=== PATIENT | female | born 1985 | race Caucasian/White ===

== ENCOUNTER → 2017-04-15 | Outpatient (CLI) | payer BC ==
--- NOTE | 2017-04-15 14:31 | DIAGNOSTIC IMAGING REPORT ---
SI JOINTS 3 OR MORE VIEWS CLINICAL HISTORY: Persistent low back pain COMPARISON STUDY: No previous studies for comparison. FINDINGS: There is no evidence of SI joint fusion. There are no erosive or destructive changes. No fractures are visualized. IMPRESSION: No conventional radiographic evidence of sacroiliitis. Electronically signed by: Sonny Morel M.D. 04/15/2017 2:30 PM Dictated Date/Time: 04/15/2017 2:29 PM
--- NOTE | 2017-04-15 14:32 | DIAGNOSTIC IMAGING REPORT ---
C-SPINE ROUTINE 4 OR 5 VIEWS CLINICAL HISTORY: Persistent neck pain COMPARISON STUDY: No previous studies for comparison. FINDINGS: There is a reversal the normal cervical lordosis. No fractures or subluxations are visualized. No destructive lesions are evident. IMPRESSION: Reversal the normal cervical lordosis. Minor degenerative changes. No fractures, subluxations, or destructive lesions are visualized Electronically signed by: Sonny Morel M.D. 04/15/2017 2:31 PM Dictated Date/Time: 04/15/2017 2:30 PM
--- NOTE | 2017-04-15 14:32 | DIAGNOSTIC IMAGING REPORT ---
LUMBAR SPINE 5 VIEWS HISTORY: LUMBAR/NECK PAIN, PT TO LAB 1 COMPARISON: None. FINDINGS: There is no fracture. No subluxation. Disc spaces are preserved. Cholecystectomy. The sacrum appears intact. IMPRESSION: No fracture or subluxation within the lumbar spine. Electronically signed by: Rob Mejia M.D. 04/15/2017 2:30 PM Dictated Date/Time: 04/15/2017 2:29 PM
[2017-04-15 15:01] LABS: BASO % 0.4 %; BASO ABS # 0.04 K/uL (0-0.2); COMPLETE YES; HEMATOCRIT 45.2 % (37-47); IG% 0.3 %; LYMPH % 28.6 %; LYMPH ABS # 3.01 K/uL (1.2-3.4); MEAN CELL VOLUME 88.6 fL (80-100); MEAN CORPUSCULAR HEMOGLOBIN 30.8 pg (25-34); MEAN CORPUSCULAR HGB CONC 34.7 g/dl (32-36); MEAN PLATELET VOLUME 11.2 fL (7.4-10.4); MONO % 6.4 %; NEUT % 62.3 %; PLATELET COUNT 290 K/uL (130-400); WHITE BLOOD COUNT 10.53 K/uL (4.8-10.8)
[2017-04-15 15:45] LABS: RHEUMATOID FACTOR < 10.0 U/mL (0-15); THYROID STIMULATING HORMONE 0.298 uIu/ml (0.300-4.500)
[2017-04-15 18:29] LABS: LYME DISEASE AB IGG NEG (NEG); LYME DISEASE AB IGM NEG (NEG)
--- NOTE | 2017-04-19 10:05 | CODING QUERY MEDICAL NECESSITY ---
SUPPORTING DIAGNOSIS NEEDED A supporting diagnosis is required for the test/procedure performed on this patient in order for us to be reimbursed by the patient's insurance. Please provide a supporting diagnosis for the following test/procedure listed below next to the test name along with your signature. *If there is no additional diagnosis for this patient that would support the following test/procedure please document that below next to the test/procedure. Test(s)/Procedure(s) that require a supporting diagnosis: * VITAMIN D, 25-HYDROXY DIAGNOSIS: Provider Signature: Date: Thank you Paulina Wong [employer] Once completed, please kindly fax back to [phone] For questions please call [phone]
== END | disposition home or self-care (01) ==
LOC: C.RAD 13:20
PROVIDERS: ATTEND Nurse Practitioner Family
DX: M54.2 Cervicalgia (principal); M54.5 Low back pain; M25.50 Pain in unspecified joint; Z82.61 Family history of arthritis; Z86.39 Personal history of other endocrine, nutritional and metabolic disease

== ENCOUNTER → 2017-04-26 | Outpatient (CLI) | payer BC | END | disposition home or self-care (01) | LOC: C.LAB 14:17 | PROVIDERS: ATTEND Nurse Practitioner Family | DX: Z86.39 Personal history of other endocrine, nutritional and metabolic disease (principal); R94.6 Abnormal results of thyroid function studies ==

== ENCOUNTER → 2017-05-10 | Outpatient (CLI) | payer BC | END | disposition home or self-care (01) | LOC: C.LAB 13:02 | PROVIDERS: ATTEND Nurse Practitioner Family | DX: R94.6 Abnormal results of thyroid function studies (principal) ==

== ENCOUNTER 2017-11-26 16:22 | Emergency (ER) | payer BC, OTHER ==
[~2017-11-26] VITALS: Ht 167.6 cm; Wt 80.0 kg
[2017-11-26 16:29] VITALS: TEMP 37.4; Ht 167.6 cm; Wt 80.0 kg
[2017-11-26] MEDS ORDERED: SODIUM CHLORIDE 0.9% 1000ML 1,000 ML IV STA (16:49)
--- NOTE | 2017-11-26 16:54 | EMERGENCY ROOM VISIT NOTE ---
History Report prepared by Hanna: Govind Ayala Under the Supervision of: Dr. Chad Allan M.D. First contact with patient: 16:44 Chief Complaint: CONGESTION Stated Complaint: CHEST PAIN,DIZZY,LIGHT HEADED,WEAK,TIRED,DISORIENT Nursing Triage Summary: see triage note History of Present Illness The patient is a 32 year old female who presents to the Emergency Room with complaints of worsening fatigue and weakness that began roughly 1 week ago. The patient states that she is also coughing intermittently and having chest pains. The cough is wet, but it does not seem to worsen/cause her chest pain. She has noticed febrile temperatures intermittently over the past week. The patient notes that she had some congestion and sinus pain 2 weeks ago, which resolved with Sinex medication. She also [facility] ago and was told that she was likely dehydrated. She has no history of asthma, COPD, or emphysema, but is a current everyday smoker. She has had bronchitis once before. 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 A total of 10 systems reviewed and were otherwise negative. Past Medical & Surgical Medical Problems: (1) Bronchitis (2) Sinus congestion Family History Diabetes mellitus Hypertension Social History Smoking Status: Current Every Day Smoker Marital Status: Housing Status: lives with significant other Occupation Status: employed Current/Historical Medications Scheduled Albuterol Hfa (Ventolin Hfa), 3 PUFFS INH Q6H Doxycycline Hyclate (Vibramycin), 100 MG PO BID Allergies Coded Allergies: Clarithromycin (Unverified Allergy, Unknown, UNKNOWN, 11/26/17) Penicillins (Unverified Allergy, Unknown, UNKNOWN, 11/26/17) Physical Exam Vital Signs Date Time Temp Pulse Resp B/P (MAP) Pulse Ox O2 Delivery O2 Flow Rate FiO2 11/26/17 19:04 91 18 114/73 98 11/26/17 17:55 76 16 103/73 98 Room Air 11/26/17 17:23 101 11/26/17 16:33 97 Room Air 11/26/17 16:29 37.4 104 20 121/81 97 Room Air Physical Exam GENERAL: Patient is in no acute distress. HEENT: No acute trauma, normocephalic atraumatic, mucous membranes moist, no nasal congestion, no scleral icterus. There is no throat erythema or exudate. NECK: No stridor, no adenopathy, no meningismus, trachea is midline. LUNGS: Clear to auscultation bilaterally, no wheeze, no rhonchi, breath sounds equal. HEART: Without murmurs gallops or rubs, regular rate and rhythm. CHEST: Non-tender chest wall. ABDOMEN: Soft, nontender, bowel sounds positive, no hernias, no peritonitis. EXTREMITIES: No cyanosis or edema, full range of motion of all the joints without pain or difficulty, no signs for acute trauma. NEUROLOGIC: Oriented x 3, no acute motor or sensory deficits, no focal weakness. SKIN: No rash, no jaundice, no diaphoresis. Medical Decision & Procedures ER Provider Diagnostic Interpretation: Radiology results as stated below per my review and radiologist interpretation: SINGLE VIEW CHEST CLINICAL HISTORY: Weakness. Change in mental status. FINDINGS: An AP, portable, upright chest radiograph is obtained. No prior studies are available for comparison at the time of dictation. The examination is degraded by portable technique and patient rotation. The cardiomediastinal silhouette is unremarkable. There are low lung volumes with bibasilar atelectasis. There is nonspecific coarsening of the interstitium. No lobar consolidation or large pleural effusion is identified. No pneumothorax is seen. The bony thorax is grossly intact. IMPRESSION: There is nonspecific coarsening of the interstitium. Correlate clinically for evidence of a mild infectious/inflammatory pneumonitis or less likely mild congestive change. Electronically signed by: Chad Davis M.D. 11/26/2017 5:46 PM Dictated Date/Time: 11/26/2017 5:45 PM Laboratory Results 11/26/17 17:05 Red Blood Count 4.74, Mean Corpuscular Volume 89.2, Mean Corpuscular Hemoglobin 30.0, Mean Corpuscular Hemoglobin Concent 33.6, Mean Platelet Volume 10.8, Neutrophils (%) (Auto) 74.5, Lymphocytes (%) (Auto) 14.7, Monocytes (%) (Auto) 10.1, Eosinophils (%) (Auto) 0.1, Basophils (%) (Auto) 0.3, Neutrophils # (Auto ) 5.22, Lymphocytes # (Auto) 1.03, Monocytes # (Auto) 0.71, Eosinophils # (Auto ) 0.01, Basophils # (Auto) 0.02 11/26/17 17:05 Test 11/26/17 16:58 11/26/17 17:05 11/26/17 18:00 Influenza Type A Antigen Neg for Influ A (NEG) Influenza Type B Antigen Neg for Influ B (NEG) White Blood Count 7.01 K/uL (4.8-10.8) Red Blood Count 4.74 M/uL (4.2-5.4) Hemoglobin 14.2 g/dL (12.0-16.0) Hematocrit 42.3 % (37-47) Mean Corpuscular Volume 89.2 fL (80-100) Mean Corpuscular Hemoglobin 30.0 pg (25-34) Mean Corpuscular Hemoglobin Concent 33.6 g/dl (32-36) Platelet Count 186 K/uL (130-400) Mean Platelet Volume 10.8 fL (7.4-10.4) Neutrophils (%) (Auto) 74.5 % Lymphocytes (%) (Auto) 14.7 % Monocytes (%) (Auto) 10.1 % Eosinophils (%) (Auto) 0.1 % Basophils (%) (Auto) 0.3 % Neutrophils # (Auto) 5.22 K/uL (1.4-6.5) Lymphocytes # (Auto) 1.03 K/uL (1.2-3.4) Monocytes # (Auto) 0.71 K/uL (0.11-0.59) Eosinophils # (Auto) 0.01 K/uL (0-0.5) Basophils # (Auto) 0.02 K/uL (0-0.2) RDW Standard Deviation 40.4 fL (36.4-46.3) RDW Coefficient of Variation 12.4 % (11.5-14.5) Immature Granulocyte % (Auto) 0.3 % Immature Granulocyte # (Auto) 0.02 K/uL (0.00-0.02) Anion Gap 6.0 mmol/L (3-11) Est Creatinine Clear Calc Drug Dose 105.4 ml/min Estimated GFR () 110.6 Estimated GFR (Non- 95.4 BUN/Creatinine Ratio 7.4 (10-20) Calcium Level 8.5 mg/dl (8.5-10.1) Total Bilirubin 0.4 mg/dl (0.2-1) Aspartate Amino Transf (AST/SGOT) 10 U/L (15-37) Alanine Aminotransferase (ALT/SGPT) 17 U/L (12-78) Alkaline Phosphatase 76 U/L (45-117) Troponin I < 0.015 ng/ml (0-0.045) Total Protein 7.1 gm/dl (6.4-8.2) Albumin 3.7 gm/dl (3.4-5.0) Globulin 3.4 gm/dl (2.5-4.0) Albumin/Globulin Ratio 1.1 (0.9-2) Thyroid Stimulating Hormone (TSH) 0.055 uIu/ml (0.300-4.500) Free Thyroxine 1.09 ng/dl (0.80-1.60) Urine Color YELLOW Urine Appearance CLEAR (CLEAR) Urine pH 6.0 (4.5-7.5) Urine Specific [place] 1.014 (1.000-1.030) Urine Protein NEG (NEG) Urine Glucose (UA) NEG (NEG) Urine Ketones NEG (NEG) Urine Occult Blood NEG (NEG) Urine Nitrite NEG (NEG) Urine Bilirubin NEG (NEG) Urine Urobilinogen NEG (NEG) Urine Leukocyte Esterase NEG (NEG) Laboratory results reviewed by me. Medications Administered Medications (Trade) Dose Ordered Sig/Miguel Route Start Time Stop Time Status Last Admin Dose Admin Sodium Chloride 1,000 ml @ 999 mls/hr Q1H1M STAT IV 11/26/17 16:49 11/26/17 17:49 DC 11/26/17 17:07 999 MLS/HR Albuterol (Ventolin Hfa Inhaler) 3 puffs NOW ONCE INH 11/26/17 17:00 11/26/17 17:01 DC 11/26/17 17:10 3 PUFFS Doxycycline Hyclate (Vibramycin Cap) 100 mg ONE ONCE PO 11/26/17 18:30 11/26/17 18:31 DC 11/26/17 18:42 100 MG Ibuprofen (Motrin Tab) 600 mg NOW STAT PO 11/26/17 18:59 11/26/17 19:00 DC 11/26/17 19:04 600 MG ECG Indication: chest pain, weakness Rate (beats per minute): 96 Rhythm: normal sinus Findings: no acute ischemic change, no ectopy Change: Patient's electrocardiogram interpreted by me. ED Course 164: The patient was evaluated in room A4B. A complete history and physical exam was performed. 164: Ordered Sodium Chloride 1000 mL @ 999 mL/hr IV. 170: Ordered Albuterol 3 puffs INH. 1829: Ordered Doxycycline Hyclate 100 mg PO. 1858: Ordered Ibuprofen 600 mg PO. 1903: Reevaluated the patient. Discussed results and discharge instructions: She verbalized understanding and agreement. The patient is ready for discharge. Medical Decision Differential Diagnosis includes; Bronchitis, pneumonia, dehydration, UTI, electrolyte imbalance, anemia, cardiac ischemia, sinusitis, influenza. There is no leukocytosis or concerning anemia. No significant electrolyte abnormality, kidney failure or hepatitis. TSH was low however, the T4 was normal. Influenza testing was negative. Chest x-ray did not show pneumonia or CHF. Urinalysis did not show infection. EKG showed a sinus rhythm, no acute ischemia. Cardiac enzyme testing 1 was not consistent with acute cardiac injury. The patient was given IV saline, she received oral doxycycline, albuterol via MDI and oral Motrin. She feels improved. She is being discharged home. She appears to have an acute bronchitis and acute sinusitis. She has had symptoms for weeks, antibiotics are indicated. Medication Reconcilliation Current Medication List: was personally reviewed by me Blood Pressure Screening Patient's blood pressure: Normal blood pressure Impression Primary Impression: Acute bronchitis Additional Impression: Acute sinusitis Scribe Attestation The scribe's documentation has been prepared under my direction and personally reviewed by me in its entirety. I confirm that the note above accurately reflects all work, treatment, procedures, and medical decision making performed by me. Departure Information Dispostion Home / Self-Care Prescriptions Albuterol Hfa (VENTOLIN HFA) 200 Puffs/40440 Mcg Aers 3 PUFFS INH Q6H, #1 INHALER Prov: Chad Allan M.D. 11/26/17 Doxycycline Hyclate (VIBRAMYCIN) 100 Mg Cap 100 MG PO BID for 10 Days, #20 CAP Prov: Chad Allan M.D. 11/26/17 Referrals No Doctor, Assigned (PCP) Forms HOME CARE DOCUMENTATION FORM, IMPORTANT VISIT INFORMATION Patient Instructions My [facility] Additional Instructions albuterol 2-3 puffs every 4 hours to help the breathing and cough doxycycline 2x per day for 10 days rest fluids return if worsening as we discussed Problem Qualifiers
[2017-11-26] MEDS ORDERED: ALBUTEROL HFA 8 GM INHALER INH ONE (17:00)
[2017-11-26 17:24] LABS: BASO % 0.3 %; BASO ABS # 0.02 K/uL (0-0.2); EOS % 0.1 %; EOS ABS # 0.01 K/uL (0-0.5); HEMATOCRIT 42.3 % (37-47); HEMOGLOBIN 14.2 g/dL (12.0-16.0); IG# 0.02 K/uL (0.00-0.02); LYMPH % 14.7 %; LYMPH ABS # 1.03 K/uL (1.2-3.4); MEAN CELL VOLUME 89.2 fL (80-100); MEAN CORPUSCULAR HGB CONC 33.6 g/dl (32-36); MEAN PLATELET VOLUME 10.8 fL (7.4-10.4); MONO % 10.1 %; MONO ABS # 0.71 K/uL (0.11-0.59); NEUT % 74.5 %; NEUT ABS # 5.22 K/uL (1.4-6.5); PLATELET COUNT 186 K/uL (130-400); RED CELL DISTRIBUTION WIDTH CV 12.4 % (11.5-14.5); RED CELL DISTRIBUTION WIDTH SD 40.4 fL (36.4-46.3); WHITE BLOOD COUNT 7.01 K/uL (4.8-10.8)
[2017-11-26 17:45] LABS: ALBUMIN 3.7 gm/dl (3.4-5.0); ALT/SGPT 17 U/L (12-78); AST/SGOT 10 U/L (15-37); BLOOD UREA NITROGEN 6 mg/dl (7-18); CALCIUM 8.5 mg/dl (8.5-10.1); CARBON DIOXIDE 25 mmol/L (21-32); CREATININE 0.81 mg/dl (0.60-1.20); GLUCOSE 107 mg/dl (70-99); POTASSIUM 3.3 mmol/L (3.5-5.1); SODIUM 137 mmol/L (136-145)
--- NOTE | 2017-11-26 17:47 | DIAGNOSTIC IMAGING REPORT ---
SINGLE VIEW CHEST CLINICAL HISTORY: Weakness. Change in mental status. FINDINGS: An AP, portable, upright chest radiograph is obtained. No prior studies are available for comparison at the time of dictation. The examination is degraded by portable technique and patient rotation. The cardiomediastinal silhouette is unremarkable. There are low lung volumes with bibasilar atelectasis. There is nonspecific coarsening of the interstitium. No lobar consolidation or large pleural effusion is identified. No pneumothorax is seen. The bony thorax is grossly intact. IMPRESSION: There is nonspecific coarsening of the interstitium. Correlate clinically for evidence of a mild infectious/inflammatory pneumonitis or less likely mild congestive change. Electronically signed by: Chad Davis M.D. 11/26/2017 5:46 PM Dictated Date/Time: 11/26/2017 5:45 PM
[2017-11-26 17:55] LABS: ALKALINE PHOSPHATASE 76 U/L (45-117); TOTAL PROTEIN 7.1 gm/dl (6.4-8.2)
[2017-11-26 17:58] LABS: INFLUENZA B ANTIGEN Neg for Influ B (NEG)
[2017-11-26] MEDS ORDERED: DOXYCYCLINE HYCLATE 100 MG CAP PO ONE (18:30)
[2017-11-26] MEDS ORDERED: IBUPROFEN 600 MG TAB PO STA (18:59)
[2017-11-26] MEDS ORDERED: VNTHFA/IN INH (19:02)
[2017-11-26] MEDS ORDERED: DOXY100C PO (19:02)
[2017-11-26 19:04] VITALS: BP 114/73; PULSE 91; O2SAT 98
== END 2017-11-26 19:05 | disposition home or self-care (01) ==
LOC: C.EDB 16:24 → C.EDA 19:05
DX: J20.9 Acute bronchitis, unspecified (principal); J01.90 Acute sinusitis, unspecified; R94.6 Abnormal results of thyroid function studies; F17.200 Nicotine dependence, unspecified, uncomplicated; Z83.3 Family history of diabetes mellitus; Z82.49 Family history of ischemic heart disease and other diseases of the circulatory system

== ENCOUNTER 2018-02-13 08:35 | Emergency (ER) | payer OTHER ==
[~2018-02-13] VITALS: Ht 167.6 cm; Wt 77.4 kg
[~2018-02-13 08:35] MED LIST: VNTHFA/IN INH
[2018-02-13 08:48] VITALS: TEMP 36.7; Ht 167.6 cm; Wt 77.4 kg
[2018-02-13 09:33] LABS: BASO % 0.3 %; BASO ABS # 0.04 K/uL (0-0.2); EOS % 1.2 %; EOS ABS # 0.16 K/uL (0-0.5); HEMATOCRIT 46.2 % (37-47); HEMOGLOBIN 15.9 g/dL (12.0-16.0); IG# 0.05 K/uL (0.00-0.02); LYMPH % 20.4 %; LYMPH ABS # 2.79 K/uL (1.2-3.4); MEAN CELL VOLUME 87.8 fL (80-100); MEAN CORPUSCULAR HEMOGLOBIN 30.2 pg (25-34); MEAN CORPUSCULAR HGB CONC 34.4 g/dl (32-36); MEAN PLATELET VOLUME 10.3 fL (7.4-10.4); MONO % 3.8 %; MONO ABS # 0.52 K/uL (0.11-0.59); NEUT % 73.9 %; NEUT ABS # 10.12 K/uL (1.4-6.5); PLATELET COUNT 250 K/uL (130-400); RED CELL DISTRIBUTION WIDTH CV 12.5 % (11.5-14.5); WHITE BLOOD COUNT 13.68 K/uL (4.8-10.8)
[2018-02-13 09:48] LABS: ALBUMIN 4.5 gm/dl (3.4-5.0); CALCIUM 9.2 mg/dl (8.5-10.1); CREATININE 0.91 mg/dl (0.60-1.20); POTASSIUM 3.5 mmol/L (3.5-5.1)
[2018-02-13] MEDS ORDERED: MoRPHine SULFATE 4 MG/ML 1 ML CARP\\VIAL IV STA (09:50)
[2018-02-13] MEDS ORDERED: ONDANSETRON INJ 2 MG/ML 2 ML VIAL IV STA (09:50)
[2018-02-13 09:51] LABS: TOTAL PROTEIN 8.1 gm/dl (6.4-8.2)
[2018-02-13] MEDS ORDERED: OPTIRAY 320 IV PRN (10:00)
--- NOTE | 2018-02-13 13:09 | DIAGNOSTIC IMAGING REPORT ---
ABD/PELVIS IV AND ORAL CONT CT DOSE: 452.03 mGy.cm HISTORY: Flank pain Right lower quadrant pain TECHNIQUE: Multiaxial CT images of the abdomen and pelvis were performed following the use of intravenous and oral contrast. A dose lowering technique was utilized adhering to the principles of ALARA. COMPARISON STUDY: None. FINDINGS: Lung bases are clear. Liver spleen and pancreas are uniform. There is a 1.5 cm inferior right hepatic lobe cyst. Gallbladder is surgically absent. Kidneys enhance uniformly. No evidence for necrosis. Bowel pattern is nonobstructive. The appendix is normal and air-filled. There is a 2.5 cm partially septated right ovarian cyst. Bladder is midline. Uterus is anteflexed. There is no significant free fluid within the pelvic cul-de-sac. IMPRESSION: 1. 2.5 cm septated right ovarian cyst. 2. Normal appendix. 3. Study otherwise is negative post cholecystectomy. The above report was generated using voice recognition software. It may contain grammatical, syntax or spelling errors. Electronically signed by: Mazin Elizondo M.D. 02/13/2018 1:08 PM Dictated Date/Time: 02/13/2018 1:05 PM
--- NOTE | 2018-02-13 14:07 | EMERGENCY ROOM VISIT NOTE ---
History First contact with patient: 09:30 Chief Complaint: ABDOMINAL PAIN Stated Complaint: SEVERE PAIN LOWER RIGHT ABDOMEN Nursing Triage Summary: Pt c/o right lower quadrant pain x 4 nights, denies vomiting and vomiting, at first she thought it was food poisoning and had cramping in abdomen bilaterally. That eased, but the pain in RLQ is getting worse. History of Present Illness The patient is a 32 year old female who presents to the Emergency Room with complaints of right lower quadrant pain. The patient states 4-5 days ago the pain was across the lower abdomen but for the past 3 days it is mainly in the right lower quadrant. She describes the pain as sharp in nature and is intermittent but is getting worse over the past several days. The patient denies any associated nausea or vomiting. The patient states that her bowel movements are normal. The patient denies any fever. The patient states there is a very small chance of since she has PCOS. The patient denies any urinary symptoms of frequency, urgency or dysuria. The patient denies any vaginal discharge. Patient last ate at 530 this morning which was just a small donut hole. Review of Systems 10 system review was performed and was negative unless stated otherwise history of present illness. Past Medical/Surgical History Medical Problems: (1) Bronchitis (2) Sinus congestion Cholecystectomy, tonsillectomy, endometriosis, foot surgery Family History Diabetes mellitus Hypertension Social History Smoking Status: Current Every Day Smoker Alcohol Use: occasionally Marital Status: Housing Status: lives with significant other Occupation Status: employed Current/Historical Medications Scheduled Albuterol Hfa (Ventolin Hfa), 3 PUFFS INH Q6H Physical Exam Vital Signs Date Time Temp Pulse Resp B/P (MAP) Pulse Ox O2 Delivery O2 Flow Rate FiO2 02/13/18 13:40 54 18 105/66 96 Room Air 02/13/18 11:40 61 18 110/66 98 Room Air 02/13/18 09:59 68 18 120/79 98 Room Air 02/13/18 08:48 36.7 80 16 119/81 97 Room Air Physical Exam GENERAL: 32-year-old female appears in no acute distress. MENTAL Status: Alert and oriented 3. MOUTH: Mucosa is moist NECK: Supple, no lymphadenopathy noted. No carotid bruits noted. LUNGS: Clear auscultation without wheezes rales or rhonchi. CARDIAC: Regular rate and rhythm without murmur. Pulses is full and equal throughout. BACK: No CVA tenderness noted. ABDOMEN: Positive bowel sounds all 4 quadrants. Soft, tenderness to palpation in the right lower quadrant otherwise nontender to palpation without organomegaly or masses. Negative rebound EXTREMITIES: No cyanosis or edema noted. Medical Decision & Procedures ER Provider Diagnostic Interpretation: ABD/PELVIS IV AND ORAL CONT CT DOSE: 452.03 mGy.cm HISTORY: Flank pain Right lower quadrant pain TECHNIQUE: Multiaxial CT images of the abdomen and pelvis were performed following the use of intravenous and oral contrast. A dose lowering technique was utilized adhering to the principles of ALARA. COMPARISON STUDY: None. FINDINGS: Lung bases are clear. Liver spleen and pancreas are uniform. There is a 1.5 cm inferior right hepatic lobe cyst. Gallbladder is surgically absent. Kidneys enhance uniformly. No evidence for necrosis. Bowel pattern is nonobstructive. The appendix is normal and air-filled. There is a 2.5 cm partially septated right ovarian cyst. Bladder is midline. Uterus is anteflexed. There is no significant free fluid within the pelvic cul-de-sac. IMPRESSION: 1. 2.5 cm septated right ovarian cyst. 2. Normal appendix. 3. Study otherwise is negative post cholecystectomy. The above report was generated using voice recognition software. It may contain grammatical, syntax or spelling errors. Electronically signed by: Mazin Elizondo M.D. 02/13/2018 1:08 PM Laboratory Results 02/13/18 09:15 Red Blood Count 5.26, Mean Corpuscular Volume 87.8, Mean Corpuscular Hemoglobin 30.2, Mean Corpuscular Hemoglobin Concent 34.4, Mean Platelet Volume 10.3, Neutrophils (%) (Auto) 73.9, Lymphocytes (%) (Auto) 20.4, Monocytes (%) (Auto) 3.8, Eosinophils (%) (Auto) 1.2, Basophils (%) (Auto) 0.3, Neutrophils # (Auto) 10.12, Lymphocytes # (Auto) 2.79, Monocytes # (Auto) 0.52, Eosinophils # (Auto) 0.16, Basophils # (Auto) 0.04 02/13/18 09:15 Test 02/13/18 09:15 White Blood Count 13.68 K/uL (4.8-10.8) Red Blood Count 5.26 M/uL (4.2-5.4) Hemoglobin 15.9 g/dL (12.0-16.0) Hematocrit 46.2 % (37-47) Mean Corpuscular Volume 87.8 fL (80-100) Mean Corpuscular Hemoglobin 30.2 pg (25-34) Mean Corpuscular Hemoglobin Concent 34.4 g/dl (32-36) Platelet Count 250 K/uL (130-400) Mean Platelet Volume 10.3 fL (7.4-10.4) Neutrophils (%) (Auto) 73.9 % Lymphocytes (%) (Auto) 20.4 % Monocytes (%) (Auto) 3.8 % Eosinophils (%) (Auto) 1.2 % Basophils (%) (Auto) 0.3 % Neutrophils # (Auto) 10.12 K/uL (1.4-6.5) Lymphocytes # (Auto) 2.79 K/uL (1.2-3.4) Monocytes # (Auto) 0.52 K/uL (0.11-0.59) Eosinophils # (Auto) 0.16 K/uL (0-0.5) Basophils # (Auto) 0.04 K/uL (0-0.2) RDW Standard Deviation 40.0 fL (36.4-46.3) RDW Coefficient of Variation 12.5 % (11.5-14.5) Immature Granulocyte % (Auto) 0.4 % Immature Granulocyte # (Auto) 0.05 K/uL (0.00-0.02) Urine Color YELLOW Urine Appearance CLEAR (CLEAR) Urine pH 6.5 (4.5-7.5) Urine Specific [place] 1.022 (1.000-1.030) Urine Protein NEG (NEG) Urine Glucose (UA) NEG (NEG) Urine Ketones NEG (NEG) Urine Occult Blood 1+ (NEG) Urine Nitrite NEG (NEG) Urine Bilirubin NEG (NEG) Urine Urobilinogen NEG (NEG) Urine Leukocyte Esterase SMALL (NEG) Urine WBC (Auto) 10-30 /hpf (0-5) Urine RBC (Auto) 5-10 /hpf (0-4) Urine Hyaline Casts (Auto) 1-5 /lpf (0-5) Urine Epithelial Cells (Auto) >30 /lpf (0-5) Urine Bacteria (Auto) NEG (NEG) Urine Test NEG (NEG) Anion Gap 9.0 mmol/L (3-11) Est Creatinine Clear Calc Drug Dose 92.3 ml/min Estimated GFR () 96.1 Estimated GFR (Non- 82.9 BUN/Creatinine Ratio 7.8 (10-20) Calcium Level 9.2 mg/dl (8.5-10.1) Total Bilirubin 0.7 mg/dl (0.2-1) Aspartate Amino Transf (AST/SGOT) 11 U/L (15-37) Alanine Aminotransferase (ALT/SGPT) 18 U/L (12-78) Alkaline Phosphatase 91 U/L (45-117) Total Protein 8.1 gm/dl (6.4-8.2) Albumin 4.5 gm/dl (3.4-5.0) Globulin 3.6 gm/dl (2.5-4.0) Albumin/Globulin Ratio 1.3 (0.9-2) Lipase 96 U/L (73-393) Medications Administered Medications (Trade) Dose Ordered Sig/Miguel Route Start Time Stop Time Status Last Admin Dose Admin Ondansetron HCl (Zofran Inj) 4 mg NOW STAT IV 02/13/18 09:50 02/13/18 09:52 DC 02/13/18 09:56 4 MG Morphine Sulfate (MoRPHine SULFATE INJ) 4 mg NOW STAT IV 02/13/18 09:50 02/13/18 09:52 DC 02/13/18 09:56 4 MG ED Course Patient was evaluated. The patient's EMR medication list were reviewed. IV access was obtained. Urine collection for was ordered and was negative. CBC and differential, renal profile, LFTs and lipase levels were ordered. Urinalysis was ordered. The patient was given morphine 4 mg IV for pain and Zofran 4 mg IV push for nausea. Labs are reviewed . White count was elevated at 13.6 otherwise labs are unremarkable. Urinalysis was negative. CT of the abdomen and pelvis with IV and oral contrast was ordered and interpreted by the radiologist as above with 2.5 cm right ovarian cyst otherwise unremarkable. The patient was informed of the findings. The patient was discharged home in stable condition.. Medical Decision Differential diagnosis include ovarian cyst, acute appendicitis, diverticulitis , adhesions, [place] Drug Monitoring Program Search Results: patient reviewed within database Medication Reconcilliation Current Medication List: was personally reviewed by me Blood Pressure Screening Patient's blood pressure: Normal blood pressure Impression Primary Impression: Ovarian cyst Departure Information Dispostion Home / Self-Care Condition GOOD Referrals Tana Brito, C.R.N.P. (PCP) Forms Call Back Authorization, HOME CARE DOCUMENTATION FORM, IMPORTANT VISIT INFORMATION Patient Instructions Cysts Ovarian, My [facility] Additional Instructions Tylenol and/or ibuprofen as needed for pain. Follow-up pelvic ultrasound in 3- 6 months for recheck. If symptoms worsen in the interim, follow-up with your family doctor or return to ER. Problem Qualifiers Primary Impression: Ovarian cyst Laterality: right Qualified Codes: N83.201 - Unspecified ovarian cyst, right side
[2018-02-13 14:30] VITALS: BP 133/67; PULSE 59; O2SAT 97
== END 2018-02-13 14:31 | disposition home or self-care (01) ==
LOC: C.EDB 08:36
DX: N83.201 Unspecified ovarian cyst, right side (principal); F17.200 Nicotine dependence, unspecified, uncomplicated